=== PATIENT | female | born 1995 | race Hispanic/Latino ===

== ENCOUNTER 2022-06-25 03:56 | Emergency (ER) | payer SELFPAY ==
[~2022-06-25] VITALS: Ht 149.9 cm; Wt 52.2 kg
[2022-06-25] MEDS ORDERED: PYRIDIUM200 MG PO (04:13)
[2022-06-25] MEDS ORDERED: CEFDINIR300 MG PO (04:13)
[2022-06-25 04:15] LABS: CLARITY,URINE CLOUDY (CLEAR); COLOR,URINE YELLOW (YELLOW); KETONES,URINE NEGATIVE (NEGATIVE); LEUKOCYTE ESTERASE ,URINE NEGATIVE (NEGATIVE); NITRITE,URINE NEGATIVE (NEGATIVE); PROTEIN,URINE DIPSTICK NEGATIVE (NEGATIVE); URINE UROBILINOGEN 0.2 mg/dL (0.2 - 1)
[2022-06-25 04:20] LABS: BACTERIA,URINE FEW /HPF; EPITHELIAL CELLS,URINE MODERATE /LPF; RBC,URINE >50 /HPF (0-5)
== END 2022-06-25 04:27 | disposition home or self-care (01) ==
LOC: ER 04:22
DX: R30.0 Dysuria (principal); N39.0 Urinary tract infection, site not specified; R10.30 Lower abdominal pain, unspecified
CPT/HCPCS: 81001; 81025; 99283